=== PATIENT | female | born 2005 | race Two or more races ===

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

== ENCOUNTER 2024-10-29 06:58 | Inpatient (IN) | payer OTHER ==
[~2024-10-29] VITALS: Ht 162.6 cm; Wt 2.7 kg
[2024-10-29 05:28] VITALS: BP 132/85
[2024-10-29] MEDS ORDERED: OXYTOCIN 10 UNITS/ML VIAL ONE (07:11)
[2024-10-29] MEDS ORDERED: CEFAZOLIN SODIUM 1,000 MG VIAL IV STA (07:11)
[2024-10-29] MEDS ORDERED: ERYTHROMYCIN BASE OPHT 1GM EACH TUBE OP ONE (07:12)
[2024-10-29] MEDS ORDERED: IRON325 MG PO (07:13)
[2024-10-29 07:14] VITALS: BP 134/87; O2SAT 100
[2024-10-29] MEDS ORDERED: PRENATAL TABLE1 EAC1 PO (07:14)
[2024-10-29] MEDS ORDERED: RINGERS SOLUTION,LACTATED 1,000 ML IV SCH (07:15)
[2024-10-29] MEDS ORDERED: CARBOPROST TROMETHAMINE 250 MCG/ML AMPUL IM ONE (08:06)
[2024-10-29] MEDS ORDERED: MEPERIDINE HCL/PF 25 MG,MEPERIDINE HCL/PF 50 MG IM SCH (09:15)
[2024-10-29] MEDS ORDERED: MEPERIDINE HCL/PF 50 MG/ML VIAL IM SCH (09:15)
[2024-10-29] MEDS ORDERED: MORPHINE SULFATE 4 MG/ML VIAL IV ONE ×2 (09:45→10:15)
[2024-10-29] MEDS ORDERED: CEFAZOLIN SODIUM 1,000 MG VIAL ONE (10:59)
[2024-10-29] MEDS ORDERED: PROMETHAZINE HCL 25 MG/ML AMPUL IV SCH (12:00)
[2024-10-29] MEDS ORDERED: CEFAZOLIN SODIUM 1,000 MG VIAL IV SCH (12:00)
[2024-10-29 14:00] VITALS: BP 139/84
[2024-10-29 16:18] VITALS: BP 140/80
[2024-10-29 20:38] VITALS: BP 132/83
[2024-10-30 01:01] VITALS: BP 137/86
[2024-10-30 06:36] LABS: HEMATOCRIT 26.1 % (36.0-45.00); MEAN CELL VOLUME 81.1 fL (80.00-100.00); MEAN CORPUSCULAR HGB CONC 34.5 g/dl (32.0-36.0); PLATELET COUNT 154 K/uL (150-450); RED BLOOD COUNT 3.22 M/uL (4.00-6.00); RED CELL DISTRIBUTION WIDTH 13.9 % (11.5-14.5)
[2024-10-30] MEDS ORDERED: OxyCODONE HCL/APAP UD (PERCOCET) PO PRN (08:45)
[2024-10-30] MEDS ORDERED: ACETAMINOPHEN 500 MG GEL..CAP PO PRN (08:45)
[2024-10-30] MEDS ORDERED: IRON FUM,PS/FOLIC/BCOMP,C NO.9 1 CAP CAPSULE PO STA (12:16)
[2024-10-30 16:28] VITALS: BP 140/70
[2024-10-30] MEDS ORDERED: IRON FUM,PS/FOLIC/BCOMP,C NO.9 1 CAP CAPSULE PO SCH (17:00)
[2024-10-31 01:21] VITALS: BP 133/80
[2024-10-31 08:34] VITALS: BP 124/73
[2024-10-31] MEDS ORDERED: IRON FUM,PS/FOLIC/BCOMP,C NO.9 1 CAP CAPSULE PO SCH (17:00)
== END 2024-10-31 13:47 | disposition home or self-care (01) | DRG 788 ==
LOC: LDR 06:58 → OB/GYN 06:58 → O/R 07:59 → OB/GYN 11:50
PROVIDERS: ADMIT Specialist; ATTEND Specialist
PROC: 4A1HXCZ Monitoring of Products of Conception, Cardiac Rate, External Approach (ICD-10-PCS; 2024-10-29)
PROC: 10D00Z1 Extraction of Products of Conception, Low, Open Approach (ICD-10-PCS; principal; 2024-10-29 07:15)
DX: O60.14X0 Preterm labor third trimester with preterm delivery third trimester, not applicable or unspecified (principal); O32.2XX0 Maternal care for transverse and oblique lie, not applicable or unspecified; O69.81X0 Labor and delivery complicated by cord around neck, without compression, not applicable or unspecified; O69.0XX0 Labor and delivery complicated by prolapse of cord, not applicable or unspecified; Z3A.36 36 weeks gestation of pregnancy; Z37.0 Single live birth; Z20.822 Contact with and (suspected) exposure to COVID-19

== ENCOUNTER 2025-08-04 14:50 | Emergency (ER) | payer OTHER ==
[~2025-08-04] VITALS: Ht 162.6 cm; Wt 70.3 kg
[~2025-08-04 14:50] MED LIST: IRON325 MG PO; PRENATAL TABLE1 EAC1 PO
[2025-08-04 15:28] VITALS: BP 128/85; O2SAT 97
[2025-08-04] MEDS ORDERED: DEXAMETHASONE SODIUM PHOSP/PF 10 MG/ML VIAL IV ONE (15:45)
[2025-08-04] MEDS ORDERED: 0.9 % SODIUM CHLORIDE 1,000 ML IV SCH (15:45)
[2025-08-04] MEDS ORDERED: ACETAMINOPHEN 500 MG GEL..CAP PO ONE ×2 (16:00→16:08)
[2025-08-04] MEDS ORDERED: DEXAMETHASONE SODIUM PHOSPHATE 4 MG/ML VIAL ONE (16:08)
[2025-08-04 16:48] LABS: BASO % 0.1 % (0.1-1.2); EOS # 0.05 (0.04-0.54); EOS % 0.4 % (0.7-7.0); LYMPH # 2.92 (1.18-3.74); LYMPH % 21.6 % (19.3-53.1); MEAN PLATELET VOLUME 12.30 fl (9.4-12.4); MONO # 1.34 (0.24-0.82); MONO % 9.9 % (4.7-12.5); NEUT # 9.12 (1.56-6.13); NEUT % 67.5 % (34.0-71.1); RED CELL DISTRIBUTION WIDTH 12.8 % (11.6-14.4)
[2025-08-04 17:24] LABS: COVID-19 AG NEGATIVE (NEGATIVE)
[2025-08-04 17:33] LABS: INR 1.03
[2025-08-04 18:45] LABS: ALT/SGPT 52.0 U/L (12-78); AST/SGOT 37.0 U/L (15-37); BILIRUBIN TOTAL 0.38 mg/dL (0.3-1.2); BUN CREA RATIO 13.0 (7.0-25.0); CREATININE SERUM 0.7 mg/dL (0.55-1.02); GFR 105.63; GLOBULINA 4.3 G/DL (2.4-3.5); GLUCOSE FASTING 86.0 mg/dL (65-100); OSMOLALITY SERUM 279.0 MOSM/KG (275-295)
[2025-08-04] MEDS ORDERED: CHLORASEPTIC177 M2 MM (20:24)
== END 2025-08-04 22:09 | disposition home or self-care (01) ==
LOC: ER 14:50
PROVIDERS: Student in an Organized Health Care Education/Training Program
DX: B34.9 Viral infection, unspecified (principal); J04.0 Acute laryngitis; R53.1 Weakness; Z20.822 Contact with and (suspected) exposure to COVID-19; Z91.013 Allergy to seafood

== ENCOUNTER 2025-09-01 09:38 | Emergency (ER) | payer OTHER ==
[~2025-09-01] VITALS: Ht 162.6 cm; Wt 68.0 kg
[~2025-09-01 09:38] MED LIST changes: +CHLORASEPTIC177 M2 MM
[2025-09-01] MEDS ORDERED: ACETAMINOPHEN 325 MG TABLET PO ONE (11:30)
[2025-09-01] MEDS ORDERED: AZITHROMYCIN 500 MG TABLET PO ONE ×2 (11:30→12:31)
[2025-09-01] MEDS ORDERED: GUAIFENESIN 600 MG TABLET.SA PO ONE (11:45)
[2025-09-01] MEDS ORDERED: ACETAMINOPHEN 500 MG GEL..CAP PO ONE (12:31)
[2025-09-01 13:00] LABS: BASO % 0.1 % (0.1-1.2); EOS # 0.01 (0.04-0.54); EOS % 0.1 % (0.7-7.0); LYMPH # 1.25 (1.18-3.74); LYMPH % 10.5 % (19.3-53.1); MEAN PLATELET VOLUME 11.50 fl (9.4-12.4); MONO # 0.64 (0.24-0.82); MONO % 5.4 % (4.7-12.5); NEUT # 9.95 (1.56-6.13); NEUT % 83.6 % (34.0-71.1); RED CELL DISTRIBUTION WIDTH 13.1 % (11.6-14.4)
[2025-09-01 13:20] LABS: COVID-19 AG NEGATIVE (NEGATIVE)
[2025-09-01 13:54] LABS: ALT/SGPT 20.0 U/L (12-78); AST/SGOT 14.0 U/L (15-37); BILIRUBIN TOTAL 0.68 mg/dL (0.3-1.2); BUN CREA RATIO 13.0 (7.0-25.0); CREATININE SERUM 0.8 mg/dL (0.55-1.02); GFR 90.54; GLOBULINA 4.0 G/DL (2.4-3.5); GLUCOSE FASTING 104.0 mg/dL (65-100); OSMOLALITY SERUM 279.0 MOSM/KG (275-295)
== END 2025-09-01 15:45 | disposition home or self-care (01) ==
LOC: ER 09:38
PROVIDERS: General Practice
DX: J11.1 Influenza due to unidentified influenza virus with other respiratory manifestations (principal); K52.89 Other specified noninfective gastroenteritis and colitis; Z91.013 Allergy to seafood; Z20.822 Contact with and (suspected) exposure to COVID-19

== ENCOUNTER 2025-10-01 10:27 | Outpatient (CLI) | payer OTHER | END 2025-10-01 10:34 | disposition home or self-care (01) | LOC: RAD 10:27 | DX: N20.0 Calculus of kidney (principal); M54.50 Low back pain, unspecified ==